=== PATIENT | male | born 1970 | race Caucasian/White ===

== ENCOUNTER 2016-10-25 16:41 | Emergency (ER) | payer OTHER ==
--- NOTE | ~2016-10-25 | CR21 ---
[facility] A Service [facility] RADIOLOGY TEXT RESULTS PATIENT: TALISHA SANCHEZ LOCATION: [facility] : 70 UNIT #: [id number] AGE: [address]: Echo Jones SEX: M ORDER DR: [id number] [facility] [place] [facility] [place], [place] [address] [id number] E MR#: [id number] Acc #: [id number] NAME: TALISHA SANCHEZ : 1970 SEX: M STUDY DATE/TIME: 10/25/2016 18:47 UNIT: [facility] ROOM: STUDY DESCRIPTION: CR Ankle Min 3 Views Rt Attending Physician: Echo Jones Pa-C Ordering Physician: (Niurka Yoon Primary Care Physician: No Primary Care Physician MEDICAL IMAGING REPORT This report is preliminary unless electronic signature is present EXAM Right ankle. DATE OF EXAM 10/25/2016 INDICATIONS 46-year-old male with anterior and lateral foot and ankle pain today after falling off a ladder. REPORT 3 views of the right ankle. COMPARISON No comparisons. FINDINGS There is a mild lateral soft tissue swelling. Ankle mortise intact. There is a potential small chip or avulsion fracture from the distal aspect of the dorsal margin of the talus on the lateral view. Correlate with patient point tenderness. No other distinct fracture identified. IMPRESSION 1. Findings are suspicious for a small chip or avulsion fracture from the distal aspect the dorsal talus on the lateral view. Correlate with patient point tenderness. Dictated by... Joe Flores M.D. THIS IS AN ELECTRONICALLY VERIFIED REPORT Joe Flores M.D. at 10/26/2016 4:13 PM [facility] A Service [facility] RADIOLOGY TEXT RESULTS PATIENT: TALISHA SANCHEZ LOCATION: [place] : 70 UNIT #: [id number] AGE: [address]: Echo Jones SEX: M ORDER DR: Maximino TD: 10/25/2016 23:45 JOB #: [id number] MEDICAL IMAGING REPORT Page 1 of 1 COPY
--- NOTE | ~2016-10-25 | CR127 ---
[facility] A Service of [facility] RADIOLOGY TEXT RESULTS PATIENT: TALISHA SANCHEZ LOCATION: [facility] : 70 UNIT #: [id number] AGE: [address]: Echo Jones SEX: M ORDER DR: [id number] [facility] [address] [place], [place] [address] [id number] E MR#: [id number] Acc #: [id number] NAME: TALISHA SANCHEZ : 1970 SEX: M STUDY DATE/TIME: 10/25/2016 18:49 UNIT: [facility] ROOM: STUDY DESCRIPTION: CR Foot Complete Min 3 View Rt Attending Physician: Echo Jones Pa-C Ordering Physician: Bill Yoon Primary Care Physician: No Primary Care Physician MEDICAL IMAGING REPORT This report is preliminary unless electronic signature is present EXAM Right foot 10/25/16 INDICATIONS Trauma, fell off a ladder today, anterior and lateral foot and ankle pain. TECHNIQUE Three views of right foot, no comparisons FINDINGS There is a potential tiny chip or avulsion fracture from the distal aspect the dorsal margin of the talus on the lateral view. Correlate with patient point tenderness. No additional evidence of acute fracture. IMPRESSION Findings suspicious for small chip or avulsion fracture from the distal aspect of the dorsal talus on the lateral view. Correlate with patient point tenderness. Dictated by... Joe Flores M.D. THIS IS AN ELECTRONICALLY VERIFIED REPORT Joe Flores M.D. at 10/26/2016 4:13 PM Gilbert TD: 10/25/2016 23:39 JOB #: [id number] MEDICAL IMAGING REPORT Page 1 of 1 COPY
== END 2016-10-25 20:25 | disposition home or self-care (01) ==
LOC: CED 16:41 → CFTX 16:41
DX: S92.141A Displaced dome fracture of right talus, initial encounter for closed fracture (principal); F17.210 Nicotine dependence, cigarettes, uncomplicated; Z91.040 Latex allergy status; W11.XXXA Fall on and from ladder, initial encounter; Y92.009 Unspecified place in unspecified non-institutional (private) residence as the place of occurrence of the external cause
CPT/HCPCS: 29515; 73610; 73630; 96372; 99283; J1885